=== PATIENT | female | born 1960 | race Caucasian/White ===

== ENCOUNTER → 2017-06-27 | Outpatient (CLI) | payer OTHER ==
[2017-06-27 12:22] LABS: ALB/GLOB RATIO 1.2 (0.9-2); ALKALINE PHOSPHATASE 82 U/L (45-117); ALT/SGPT 27 U/L (12-78); AST/SGOT 11 U/L (15-37); BLOOD UREA NITROGEN 15 mg/dl (7-18); BUN/CREATININE RATIO 19.4 (10-20); CALCIUM 8.9 mg/dl (8.5-10.1); CARBON DIOXIDE 28 mmol/L (21-32); CHLORIDE 108 mmol/L (98-107); CHOLESTEROL 209 mg/dl (0-200); CHOLESTEROL/HDL RATIO 4.8; CREATININE 0.79 mg/dl (0.60-1.20); GLUCOSE,FASTING 93 mg/dl (70-99); HDL CHOLESTEROL 44 mg/dl; LDL CHOLESTEROL CALCULATED 126 mg/dl; POTASSIUM 4.5 mmol/L (3.5-5.1); SODIUM 141 mmol/L (136-145); TRIGLYCERIDES 193 mg/dl (0-150); VERY LOW DENSITY LIPOPROT CALC 39 mg/dl
== END | disposition home or self-care (01) ==
LOC: C.LABPBG 09:13
PROVIDERS: ATTEND Physician Assistant
DX: Z00.00 Encounter for general adult medical examination without abnormal findings (principal)

== ENCOUNTER → 2018-04-26 | Outpatient (CLI) | payer OTHER ==
[2018-04-26 13:01] LABS: BASO % 0.9 %; BASO ABS # 0.04 K/uL (0-0.2); EOS % 3.1 %; EOS ABS # 0.14 K/uL (0-0.5); HEMATOCRIT 43.6 % (37-47); HEMOGLOBIN 14.5 g/dL (12.0-16.0); LYMPH % 37.3 %; LYMPH ABS # 1.71 K/uL (1.2-3.4); MEAN CELL VOLUME 93.2 fL (80-100); MEAN CORPUSCULAR HGB CONC 33.3 g/dl (32-36); MEAN PLATELET VOLUME 10.1 fL (7.4-10.4); MONO % 10.5 %; MONO ABS # 0.48 K/uL (0.11-0.59); NEUT % 48.2 %; NEUT ABS # 2.22 K/uL (1.4-6.5); PLATELET COUNT 183 K/uL (130-400); RED CELL DISTRIBUTION WIDTH CV 12.8 % (11.5-14.5); RED CELL DISTRIBUTION WIDTH SD 43.6 fL (36.4-46.3); WHITE BLOOD COUNT 4.59 K/uL (4.8-10.8)
[2018-04-26 13:35] LABS: ALKALINE PHOSPHATASE 80 U/L (45-117); ALT/SGPT 31 U/L (12-78); AST/SGOT 18 U/L (15-37); BLOOD UREA NITROGEN 16 mg/dl (7-18); CALCIUM 9.2 mg/dl (8.5-10.1); CARBON DIOXIDE 30 mmol/L (21-32); CHOLESTEROL 229 mg/dl (0-200); GLUCOSE 90 mg/dl (70-99); LDL CHOLESTEROL CALCULATED 160 mg/dl; POTASSIUM 4.1 mmol/L (3.5-5.1); SODIUM 141 mmol/L (136-145); TOTAL PROTEIN 7.1 gm/dl (6.4-8.2)
== END | disposition home or self-care (01) ==
LOC: C.LABPBG 07:55
PROVIDERS: ATTEND Physician Assistant Medical
DX: E78.5 Hyperlipidemia, unspecified (principal)

== ENCOUNTER → 2018-05-28 | Outpatient (CLI) | payer OTHER ==
--- NOTE | 2018-05-28 10:29 | DIAGNOSTIC IMAGING REPORT ---
GALLBLADDER-ABD LIMITED CLINICAL HISTORY: R10.11 Abdominal pain, RUQ (right upper quadrant)[id number] TECHNIQUE: Ultrasound COMPARISON STUDY: None FINDINGS: Normal gallbladder. No shadowing gallstones. Fatty infiltration of liver. Common bile duct 5 mm. Pancreas poorly seen. Right kidney negative for hydronephrosis. IMPRESSION: 1. Fatty infiltration of liver. 2. Otherwise negative study. The above report was generated using voice recognition software. It may contain grammatical, syntax or spelling errors. Electronically signed by: Chris Camacho M.D. 05/28/2018 10:28 AM Dictated Date/Time: 05/28/2018 10:26 AM
== END | disposition home or self-care (01) ==
LOC: C.ULTR 09:40
PROVIDERS: ATTEND Internal Medicine
DX: R10.11 Right upper quadrant pain (principal); K76.0 Fatty (change of) liver, not elsewhere classified